=== PATIENT | male | born 1980 | race Hispanic/Latino ===

== ENCOUNTER 2024-07-23 17:43 | Emergency (ER) | payer OTHER ==
[~2024-07-23] VITALS: Ht 165.1 cm; Wt 65.8 kg
[2024-07-23] MEDS ORDERED: IBUP-2077 PO (18:37)
[2024-07-23 19:00] VITALS: BP 136/78; PULSE 78; RESP 18; TEMP 98.2; O2SAT 98
== END 2024-07-23 19:08 | disposition home or self-care (01) ==
LOC: EDH 17:43
DX: M25.541 Pain in joints of right hand (principal); Z88.5 Allergy status to narcotic agent; Z88.8 Allergy status to other drugs, medicaments and biological substances; W22.01XA Walked into wall, initial encounter; Y93.89 Activity, other specified; Y92.89 Other specified places as the place of occurrence of the external cause; Y99.8 Other external cause status
CPT/HCPCS: 73130